=== PATIENT | male | born 1965 | race African-American/Black ===

== ENCOUNTER 2016-04-18 23:20 | Emergency (ER) | payer SELFPAY ==
[~2016-04-18] VITALS: Ht 172.7 cm; Wt 65.8 kg
[~2016-04-18 23:20] MED LIST: CEPH-264 PO; NAPR250T2 PO
[2016-04-18 23:35] VITALS: BP 165/58
[2016-04-18] MEDS ORDERED: IBUPROFEN 800 MG TABLET. PO ONE (23:45)
[2016-04-18] MEDS ORDERED: ACETAMINOPHEN 500 MG TABLET PO ONE (23:45)
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
[2016-04-19 00:17] LABS: OBC FLU VALID
[2016-04-19] MEDS ORDERED: AZIT250T PO (00:59)
[2016-04-19] MEDS ORDERED: PROAIR RESPICL90 MCG IH (00:59)
[2016-04-19] MEDS ORDERED: BENZ100C PO (00:59)
[2016-04-19] MEDS ORDERED: PRED50TA PO (00:59)
[2016-04-19] MEDS ORDERED: PROM5SYR2 PO (00:59)
--- NOTE | 2016-04-19 07:58 | RAD ---
Chest, 2 views, 04/18/2016: History: Fever The heart size and pulmonary vascularity are normal. There is a minimal minimal streaky left basilar opacity. The lungs are otherwise clear. There is no evidence of pleural fluid. IMPRESSION: Minimal left basilar atelectasis/infiltrate or scarring.
== END 2016-04-19 01:30 | disposition home or self-care (01) ==
LOC: ER 23:20
DX: J20.9 Acute bronchitis, unspecified (principal); M79.1 Myalgia; F17.200 Nicotine dependence, unspecified, uncomplicated
CPT/HCPCS: 71020; 87804; 99285-25

== ENCOUNTER 2016-11-11 10:18 | Emergency (ER) | payer BC ==
[~2016-11-11 10:18] MED LIST changes: +AZIT250T PO; +BENZ100C PO; -NAPR250T2 PO; +NAPR250T6 PO; +PRED50TA PO; +PROAIR RESPICL90 MCG IH; +PROM5SYR2 PO
[2016-11-11 10:32] VITALS: BP 129/88
[2016-11-11] MEDS ORDERED: PRED20TA PO (10:53)
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
[2016-11-11] MEDS ORDERED: methylPREDNISolone SOD SUCC PF 125 MG/2 ML VIAL. IM ONE (11:00)
== END 2016-11-11 11:08 | disposition home or self-care (01) ==
LOC: ER 10:18
DX: R21 Rash and other nonspecific skin eruption (principal)
CPT/HCPCS: 96372; 99283; J2930

== ENCOUNTER 2016-12-09 20:49 | Emergency (ER) | payer BC ==
[~2016-12-09] VITALS: Ht 177.8 cm; Wt 66.7 kg
[~2016-12-09 20:49] MED LIST changes: +PRED20TA PO
[2016-12-09] MEDS ORDERED: IV NORMAL SALINE 500ML BAG 500 ML IV ONE (21:00)
[2016-12-09] MEDS ORDERED: METOCLOPRAMIDE HCL 10 MG/2 ML VIAL. IV ONE (21:00)
[2016-12-09] MEDS ORDERED: DEXAMETHASONE SOD PHOS 20 MG/5 ML VIAL. IV ONE (21:15)
[2016-12-09] MEDS ORDERED: diphenhydrAMINE 50 MG/ML VIAL IVP ONE (21:15)
--- NOTE | 2016-12-09 21:20 | RAD ---
RS Compliance Statement: One or more of the following individualized dose reduction techniques were utilized for this examination: 1. Automated exposure control 2. Adjustment of the mA and/or kV according to patient size 3. Use of iterative reconstruction technique CT head without contrast 12/09/2016 9:05 PM INDICATION: Headache COMPARISON: None available TECHNIQUE: Multiple axial CT images of the head were obtained from skull base through the vertex without intravenous contrast. FINDINGS: Head: Ventricles, sulci and basal cisterns are within normal limits. There is no hydrocephalus. Martines-white matter differentiation is normal. There is no acute intracranial hemorrhage. There is no mass, mass effect or midline shift. Posterior fossa is normal in appearance. Visualized portions of the orbits are normal. Paranasal sinuses are well aerated. Mastoid air cells are well aerated. Scalp and calvaria are normal. IMPRESSION: No acute intracranial hemorrhage. Electronically signed by: Taylor Nicholson MD (12/09/2016 9:16 PM) [facility]
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
[2016-12-09 22:00] VITALS: BP 128/73
== END 2016-12-09 22:00 | disposition home or self-care (01) ==
LOC: ER 20:49
DX: G44.89 Other headache syndrome (principal); G43.909 Migraine, unspecified, not intractable, without status migrainosus; Z98.890 Other specified postprocedural states
CPT/HCPCS: 70450; 96361; 96374; 96375; 99284; J1100; J1200; J2765; J7040

== ENCOUNTER 2017-10-16 22:00 | Emergency (ER) | payer SELFPAY ==
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
[2017-10-16] MEDS ORDERED: IBUP-1060 PO (22:53)
--- NOTE | 2017-10-17 08:41 | RAD ---
EXAM: 1. 3 views right foot 2. 2 views right toes DATE: 10/16/2017 10:38 PM INDICATION: RIGHT TOES PAIN DUE TO INJURY 2ND AND BIG TOE COMPARISON: No Prior FINDINGS: Moderate soft tissue swelling is seen most prominent overlying the second toe. Transverse nondisplaced fracture through the neck of the second toe proximal phalanx is seen. Talonavicular joint degenerative changes are seen with mild dorsal spurring. IMPRESSION: 1. Nondisplaced transverse fracture through the proximal phalanx of the second toe with moderate associated soft tissue swelling. Electronically signed by: Pedrito Maurice MD (10/17/2017 8:37 AM) [facility]
== END 2017-10-16 23:18 | disposition home or self-care (01) ==
LOC: ER 22:00
DX: S92.414A Nondisplaced fracture of proximal phalanx of right great toe, initial encounter for closed fracture (principal); X50.1XXA Overexertion from prolonged static or awkward postures, initial encounter; Y93.89 Activity, other specified; Y92.89 Other specified places as the place of occurrence of the external cause; Y99.8 Other external cause status
CPT/HCPCS: 73630; 73660; 99284

== ENCOUNTER 2019-11-19 20:49 | Emergency (ER) | payer SELFPAY ==
[~2019-11-19] VITALS: Ht 172.7 cm; Wt 68.0 kg
[~2019-11-19 20:49] MED LIST changes: +IBUP-1060 PO
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
[2019-11-19] MEDS ORDERED: CLOT15CR23 TP (21:30)
[2019-11-19] MEDS ORDERED: DEXAMETHASONE 4 MG TABLET PO ONE (21:45)
[2019-11-19 21:50] VITALS: BP 129/86
== END 2019-11-19 21:54 | disposition home or self-care (01) ==
LOC: ER 20:49
DX: R21 Rash and other nonspecific skin eruption (principal); F17.200 Nicotine dependence, unspecified, uncomplicated
CPT/HCPCS: 99283